=== PATIENT | male | born 1995 ===

== ENCOUNTER 2016-08-17 16:07 | Emergency (ER) | payer MEDICAID, OTHER ==
[2016-08-17] MEDS ORDERED: TDAP Vaccine 0.5 mL Syr IM ONE (16:25)
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
--- NOTE | 2016-08-17 17:05 | RAD ---
PROCEDURE: Cervical Spine Radiographs. HISTORY: Pain. COMPARISON: None available. FINDINGS: BONES: Straightening of the normal cervical lordosis may be related to muscle spasm or positioning. C6 and C7 somewhat obscured by patient's shoulders on the lateral view. No acute displaced fracture identified. The dens tip appears intact. DISC SPACES: Marked. SOFT TISSUES: No prevertebral soft tissue swelling. OTHER FINDINGS: None. IMPRESSION: No acute displaced fracture identified. Straightening of the normal cervical lordosis may be related to muscle spasm or positioning.
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
[2016-08-17 17:09] VITALS: BP 140/62; PULSE 91; RESP 16; TEMP 97.5; O2SAT 98; BMI 26.9
== END 2016-08-17 17:19 | disposition home or self-care (01) ==
LOC: H.ER 16:07
DX: S13.9XXA Sprain of joints and ligaments of unspecified parts of neck, initial encounter (principal); M54.9 Dorsalgia, unspecified; M25.511 Pain in right shoulder; V43.62XA Car passenger injured in collision with other type car in traffic accident, initial encounter; Y92.410 Unspecified street and highway as the place of occurrence of the external cause